=== PATIENT | female | born 1995 | race Caucasian/White ===

== ENCOUNTER → 2017-07-10 | Outpatient (CLI) | payer OTHER | END | disposition home or self-care (01) | LOC: C.LABSPEC 13:18 | PROVIDERS: ATTEND Physician Assistant | DX: Z01.419 Encounter for gynecological examination (general) (routine) without abnormal findings (principal) ==

== ENCOUNTER → 2017-07-10 | Outpatient (CLI) | payer OTHER | END | disposition home or self-care (01) | LOC: C.PAPS 14:09 | PROVIDERS: ATTEND Physician Assistant | DX: Z12.4 Encounter for screening for malignant neoplasm of cervix (principal) ==

== ENCOUNTER 2017-10-06 12:39 | Emergency (ER) | payer OTHER ==
[~2017-10-06] VITALS: Ht 160 cm; Wt 54.7 kg
[2017-10-06 12:46] VITALS: TEMP 37; Ht 160 cm; Wt 54.7 kg
[2017-10-06] MEDS ORDERED: PROPARACAINE HCL 0.5% OP SOLN 15 ML BTL OP STA (13:24)
--- NOTE | 2017-10-06 13:24 | EMERGENCY ROOM VISIT NOTE ---
ED Visit Note First contact with patient: 13:17 CHIEF COMPLAINT: Eye pain HISTORY OF PRESENT ILLNESS: This 22-year-old female patient presents to the emergency department by private vehicle complaining of pain in the left eye that occurred yesterday. Patient states that she was getting curling iron off of a shelf and the electrical plug hit her in the left eye. There has been a constant moderate pain and irritation, slight redness and tearing in the eye. There is a mild blurring of vision at times and light bothers the eye. The vision has not been decreased over all. The patient does not wear contacts. The patient rates the pain as burning and sharp and 5/10. The patient has not had previous injuries to this eye. Tetanus shot is up to date. REVIEW OF SYSTEMS: A 6 system review of systems was completed with positives and pertinent negatives listed in the HPI. ALLERGIES: No known allergies MEDICATIONS: No medications PMH: No significant past medical or surgical history. SOCIAL HISTORY: Lives at home. She denies tobacco use. PHYSICAL EXAM: Vital Signs: Reviewed Nurse's notes, vital signs stable. Visual acuity 20/15 in the right eye, 20/20 in the left eye (with correction). GENERAL : Pleasant and cooperative, in no acute distress, but appears uncomfortable from the eye problem. Well-developed well-nourished. EYES: The pupils are equal round and reactive to light and accommodation. EOMs are full and without pain or nystagmus. There is slight discharge of clear tears from the left eye which is mildly injected. There is no foreign body visible under the eyelid even after lid eversion. Funduscopic exam reveals no hemorrhages, papilledema, or other abnormalities. No foreign body was seen embedded in the cornea under slit lamp exam. The cornea was clear and no hyphema was seen. Fluorescein uptake was observed with ultraviolet light significant for a corneal abrasion at the 9 o'clock position just medial of the pupil. EMERGENCY DEPARTMENT COURSE: I examined the patient. Proparacaine 2 drops were placed in the patient's left eye. A slit lamp exam was performed as above. Patient was given ibuprofen for pain. Ciloxan two drops was placed in the patient's left eye. Patient was educated regarding continued management, follow -up, and return precautions, she verbalized understanding. The patient was discharged home in stable condition and ambulatory. Current/Historical Medications No Active Prescriptions or Reported Meds Allergies Coded Allergies: No Known Allergies (Unverified , 10/06/17) Vital Signs Date Time Temp Pulse Resp B/P (MAP) Pulse Ox O2 Delivery O2 Flow Rate FiO2 10/06/17 14:05 68 16 108/67 100 10/06/17 12:46 37.0 90 16 129/80 97 Room Air Medications Administered Medications (Trade) Dose Ordered Sig/Kayode Route Start Time Stop Time Status Last Admin Dose Admin Ibuprofen (Motrin Tab) 600 mg NOW STAT PO 10/06/17 13:31 10/06/17 13:32 DC 10/06/17 13:47 600 MG Ciprofloxacin HCl (Ciprofloxacin 0.3% Op Soln) 2 drops NOW ONCE OPL 10/06/17 13:45 10/06/17 13:46 DC 10/06/17 13:48 2 DROPS Departure Information Impression Primary Impression: Corneal abrasion, left Dispostion Home / Self-Care Condition GOOD Prescriptions No Active Prescriptions or Reported Meds Referrals No Doctor, Assigned (PCP) Patient Instructions ED Eye Injury Corneal Abrasion, [facility] Additional Instructions DISCHARGE INSTRUCTIONS AND TREATMENT: You were evaluated and treated in the emergency department for your left eye injury. You have a corneal abrasion of the left eye. Use the Ciloxin two drops in the left eye every two hours while awake for two days; then two drops every four hours while awake for three days. You may also use Refresh eyedrops or lubricant as needed for eye irritation. Use Ibuprofen 600 mg every 6 hours or Tylenol 1000 mg every 8 hrs as needed for moderate pain. Return to the emergency department or see your eye doctor in 24-48 hours for a recheck. Please return to the emergency department for severe worsening eye pain, eye redness, changes in vision, fever/chills, or severe headache, or any other concerns. Problem Qualifiers Primary Impression: Corneal abrasion, left Encounter type: initial encounter Qualified Codes: S05.02XA - Injury of conjunctiva and corneal abrasion without foreign body, left eye, initial encounter
[2017-10-06] MEDS ORDERED: IBUPROFEN 600 MG TAB PO STA (13:31)
[2017-10-06] MEDS ORDERED: CIPROFLOXACIN HCL 0.3% OP SOLN 2.5 ML BTL OPL ONE (13:45)
[2017-10-06 14:05] VITALS: BP 108/67; PULSE 68; O2SAT 100
== END 2017-10-06 14:06 | disposition home or self-care (01) ==
LOC: C.EDB 12:43 → C.EDD 14:06
DX: S05.02XA Injury of conjunctiva and corneal abrasion without foreign body, left eye, initial encounter (principal); W20.8XXA Other cause of strike by thrown, projected or falling object, initial encounter